=== PATIENT | female | born 1985 | race Native Hawaiian/Other Pacific Islander ===

== ENCOUNTER 2021-09-21 14:33 | Emergency (ER) | payer OTHER ==
[~2021-09-21] VITALS: Ht 165.1 cm; Wt 95.3 kg
[2021-09-21 16:50] LABS: PLATELET COUNT 196 K/uL (152-353)
[2021-09-21 17:04] LABS: PARTIAL THROMBOPLASTIN TIME 27.7 SECONDS (24.5-33.6)
[2021-09-21 17:35] VITALS: BP 121/72; TEMP 98.7
== END 2021-09-21 17:35 | disposition home or self-care (01) ==
LOC: ED 14:33
PROVIDERS: Emergency Medicine
DX: N92.1 Excessive and frequent menstruation with irregular cycle (principal)
CPT/HCPCS: 80048; 85027; 85610; 85730; 99283